=== PATIENT | female | born 2000 | race Caucasian/White ===

== ENCOUNTER 2018-02-17 19:16 | Emergency (ER) | payer OTHER ==
[2018-02-17] MEDS: diphenhydrAMINE 25 MG CAP PO (19:47)
== END 2018-02-17 19:59 | disposition home or self-care (01) ==
LOC: M ED 19:16
DX: O99.712 Diseases of the skin and subcutaneous tissue complicating pregnancy, second trimester (principal); L25.9 Unspecified contact dermatitis, unspecified cause; Z3A.14 14 weeks gestation of pregnancy; O99.332 Smoking (tobacco) complicating pregnancy, second trimester; F17.210 Nicotine dependence, cigarettes, uncomplicated
CPT/HCPCS: 99282

== ENCOUNTER → 2018-04-20 | Outpatient (CLI) | payer OTHER | LOC: M RAD 06:34 | DX: Z34.02 Encounter for supervision of normal first pregnancy, second trimester (principal) | CPT/HCPCS: 76811 ==

== ENCOUNTER 2018-05-03 19:29 | Outpatient (CLI) | payer OTHER | END 2018-05-03 20:53 | disposition home or self-care (01) | LOC: M LDO 19:29 | DX: O26.892 Other specified pregnancy related conditions, second trimester (principal); R10.30 Lower abdominal pain, unspecified; Z3A.22 22 weeks gestation of pregnancy | CPT/HCPCS: G0463 ==

== ENCOUNTER → 2018-05-17 | Outpatient (CLI) | payer OTHER | LOC: M RAD 10:41 | DX: Z34.02 Encounter for supervision of normal first pregnancy, second trimester (principal); Z3A.26 26 weeks gestation of pregnancy | CPT/HCPCS: 76816 ==

== ENCOUNTER 2018-07-10 17:17 | Emergency (ER) | payer OTHER ==
[~2018-07-10] VITALS: Ht 160 cm; Wt 86.2 kg
[~2018-07-10 17:17] MED LIST: BENA25CA4 PO
[2018-07-10] MEDS ORDERED: IRON27TA2 PO (17:23)
[2018-07-10] MEDS ORDERED: ACETAMINOPHEN 325 MG TAB PO ONE (18:00)
[2018-07-10] MEDS ORDERED: NS 1,000 ML IV ONE (18:00)
[2018-07-10] MEDS ORDERED: METOCLOPRAMIDE INJ 10MG/2ML VIAL (J2765) IV ONE (18:00)
[2018-07-10 18:22] LABS: BASO % 0.1 % (0.0-1.0); EOS # 0.1 10^3/uL (0.0-0.50); EOS % 0.6 % (0.0-3.0); HEMATOCRIT 32.8 % (36.0-47.0); HEMOGLOBIN 10.7 g/dl (12.0-15.5); LYMPH # 2.7 10^3/uL (1.5-6.5); LYMPH % 30.1 % (24.0-44.0); MEAN CORPUSCULAR HEMOGLOBIN 31.1 pg (27.0-33.0); MEAN CORPUSCULAR HGB CONC 32.6 g/dl (32.0-36.5); MEAN CORPUSCULAR VOLUME 95.3 fl (80.0-96.0); MONO # 0.5 10^3/uL (0.0-0.8); MONO % 5.7 % (0.0-5.0); NEUTROPHILS # 5.6 10^3/uL (1.8-7.7); NEUTROPHILS % 62.4 % (36.0-66.0); PLATELET COUNT, AUTOMATED 211 10^3/uL (150-450); RED BLOOD COUNT 3.44 10^6/uL (4.00-5.40); WHITE BLOOD COUNT 8.9 10^3/uL (4.0-10.0)
[2018-07-10 18:44] LABS: ALBUMIN 2.8 GM/DL (3.2-5.2); ALT/SGPT 15 U/L (12-78); BILIRUBIN,TOTAL 0.2 MG/DL (0.2-1.0); BLOOD UREA NITROGEN 5 MG/DL (7-18); CALCIUM LEVEL 8.3 MG/DL (8.5-10.1); CARBON DIOXIDE LEVEL 22 MEQ/L (21-32); CHLORIDE LEVEL 108 MEQ/L (98-107); CREATININE FOR GFR 0.46 MG/DL (0.55-1.30); GLUCOSE, FASTING 75 MG/DL (70-100); SODIUM LEVEL 140 MEQ/L (136-145); TOTAL PROTEIN 6.7 GM/DL (6.4-8.2)
[2018-07-10 18:57] LABS: APPEARANCE, URINE HAZY (CLEAR); BACTERIA, URINE AUTO 1+ (NEGATIVE); BILIRUBIN, URINE AUTO NEGATIVE (NEGATIVE); BLOOD, URINE BLOOD NEGATIVE (NEGATIVE); COLOR, URINE YELLOW (YELLOW); GLUCOSE, URINE (UA) AUTO NEGATIVE (NEGATIVE); KETONE, URINE AUTO NEGATIVE (NEGATIVE); LEUKOCYTE ESTERASE, URINE AUTO NEGATIVE (NEGATIVE); MUCUS, URINE SMALL (NEGATIVE); NITRITE, URINE AUTO NEGATIVE (NEGATIVE); PROTEIN, URINE AUTO NEGATIVE (NEGATIVE); RBC, URINE AUTO 1 /HPF (0-3); SPECIFIC GRAVITY URINE AUTO 1.012 (1.002-1.035); SQUAMOUS EPITHELIAL CELL UR AU 6 /HPF (0-6); UROBILINOGEN, URINE AUTO 0.2 mg/dL (0.0-2.0); WBC, URINE AUTO 4 /HPF (0-3)
[2018-07-10] MEDS ORDERED: REGL10TA6 PO (19:10)
[2018-07-10 19:32] VITALS: BP 111/64
== END 2018-07-10 19:36 | disposition home or self-care (01) ==
LOC: M ED 17:17
DX: O99.353 Diseases of the nervous system complicating pregnancy, third trimester (principal); G43.909 Migraine, unspecified, not intractable, without status migrainosus; Z3A.33 33 weeks gestation of pregnancy
CPT/HCPCS: 80053; 81001; 85025; 96374; 99284; J2765

== ENCOUNTER 2018-07-26 10:11 | Emergency (ER) | payer OTHER ==
[~2018-07-26] VITALS: Ht 160 cm; Wt 88.2 kg
[~2018-07-26 10:11] MED LIST changes: +IRON27TA2 PO; +REGL10TA6 PO
[2018-07-26 10:12] VITALS: BP 130/80
[2018-07-26] MEDS ORDERED: FLON1SPR NARES (10:31)
== END 2018-07-26 10:41 | disposition home or self-care (01) ==
LOC: M ED 10:11
DX: J06.9 Acute upper respiratory infection, unspecified (principal); H65.03 Acute serous otitis media, bilateral

== ENCOUNTER 2018-08-04 09:51 | Outpatient (CLI) | payer OTHER ==
[~2018-08-04] VITALS: Ht 160 cm; Wt 89.4 kg
[~2018-08-04 09:51] MED LIST changes: +FLON1SPR NARES
[2018-08-04] MEDS ORDERED: FERR325T3 PO (10:07)
[2018-08-04] MEDS ORDERED: PRENTAB9 PO (10:07)
[2018-08-04 10:09] VITALS: BP 119/63
[2018-08-04 10:44] LABS: HEMATOCRIT 31.4 % (36.0-47.0); HEMOGLOBIN 10.6 g/dl (12.0-15.5); MEAN CORPUSCULAR HEMOGLOBIN 31.5 pg (27.0-33.0); MEAN CORPUSCULAR HGB CONC 33.8 g/dl (32.0-36.5); MEAN CORPUSCULAR VOLUME 93.5 fl (80.0-96.0); PLATELET COUNT, AUTOMATED 202 10^3/uL (150-450); RED BLOOD COUNT 3.36 10^6/uL (4.00-5.40); WHITE BLOOD COUNT 8.8 10^3/uL (4.0-10.0)
[2018-08-04 10:47] LABS: PARTIAL THROMBOPLASTIN TIME 27.4 SECONDS (25.4-37.6); PROTHROMBIN TIME 13.3 SECONDS (12.1-14.4)
[2018-08-04 11:23] LABS: COLLAGEN EPINEPHRINE 105 SECONDS (74-162)
--- NOTE | 2018-08-04 12:19 | REP ---
OB ULTRASOUND: Real-time sonographic evaluation of gravid uterus performed. There is a single living intrauterine gestation. Estimated gestational age is 37 weeks 1 day based on initial ultrasound, EDC 08/24/2018. heart rate 135 beats per minute. Amniotic fluid within normal limits, RANDI 13.2 within normal range of 7.8 to 24.9. S/D ratio 3.23 is slightly above normal range of 2.0 to 3.0. RI 0.69, within normal range of 0.59 to 0.75. position vertex. Placenta anterior with no previa or abruption. Electronically Signed by Calvin Beltran MD 08/04/2018 04:01 P
--- NOTE | 2018-08-04 14:20 | NUR ---
[facility] L&D Triage Note: S: This is a 17 y/o G1 at 35+5 weeks who presented s/p falling down a couple of stairs and landing on her buttocks/low back earlier this morning. Following her time during evaluation on L&D she continues to deny VB/LOF/CTX and endorses excellent FM. Her has been c/b anemia, smoking but quit, and she is giving this baby up for adoption. O: VSS/AF GEN A&Ox3 PUL: CTAB CV: RRR ABD: gravid, NNTP; relaxed uterine resting tone [place]: no palpable ctx EXT: + DTR's, NEG clonus FHR: CAT 1, no ctx TAUS: SIUP; FHR 135bpm. RANDI 13.2. Cephalic vtx, anterior placenta no previa or abruption LABS: H/H-10.6; 31.4; Fibrinogen 533, PLT 202 A/P: 17 y/o G1 35+5 s/p fall. After 4 hours of continuous FM w/ CAT I FHR. She is being dc'd to home with reassuring status and no evidence of abruption. Extensive review of warning signs, return precautions, and reinforced importance of daily [facility]MC assessments. She has CULLEN this week and has been instructed to keep appt. Pt reports understanding of all instructions w/o questions/concerns.
== END 2018-08-04 14:15 | disposition home or self-care (01) ==
LOC: M LDO 09:51
PROVIDERS: ATTEND Obstetrics & Gynecology
DX: Z04.3 Encounter for examination and observation following other accident (principal); O26.893 Other specified pregnancy related conditions, third trimester; W10.8XXA Fall (on) (from) other stairs and steps, initial encounter; Y92.89 Other specified places as the place of occurrence of the external cause; Y93.89 Activity, other specified; Y99.8 Other external cause status; Z3A.35 35 weeks gestation of pregnancy
CPT/HCPCS: 36415; 59025; 76815; 76820; 85027; 85384; 85576; 85610; 85730; G0378; G0463

== ENCOUNTER 2018-09-08 01:38 | Inpatient (IN) | payer OTHER ==
[~2018-09-08] VITALS: Ht 160 cm; Wt 93.7 kg
[2018-09-08] VITALS (61 sets, daily range): BP systolic 90–161; BP diastolic 51–110
[~2018-09-08 01:38] MED LIST changes: +FERR325T3 PO; +PRENTAB9 PO
[2018-09-08] MEDS: LR 1,000 ML IV SCH ×3 (03:06→14:33)
[2018-09-08] MEDS ORDERED: LACTATED RINGER'S 1000 ML IV STA (03:06)
--- NOTE | 2018-09-08 03:26 | HPEPDOC ---
Obstetrical History & Physical General Date of Admission 09/08/2018 History of Present Illness Emilia is a 17yo with SIUP at 40w5d by lmp c/w early u/s presenting to L&D for painful ctx. No LOF, no vaginal bleeding, feels good movement. On RN check, patient /-2. On re-check after 1 hour, SCE /-2. Chief Complaint: Contractions, term Care Care: Good Care Dating Final EDC: Sep 03, 2018 Final EDC by: LMP, 1st trimester (US) Antepartum Course Diagnos(e)s Overweight with starting BMI 26.6 and Excessive weight gain (53 pounds), smoked 1 cig/day but quit with , mild bilateral renal hydronephrosis (will make pediatric team aware), anemia (H/H at 28wk 10.6/31.2), patient plans to adopt the baby out Height (inches): 63 Pre- weight (lbs.): 150 Admission Weight (lbs.): 203 Change in Weight (lbs.): 53 Past Medical History Past Obstetrical History : Past Obstetrical History: Primgravida Past Medical History Medical History Overweight (starting BMI 26.6) Surgical History: [place] teeth Family History Significant Family History: No pertinent family hx Social History Marital Status: Single Psychosocial History: No pertinent psych hx * Smoker: former Smoker Alcohol: Denies Drugs: denies Imunizations Tdap status: current Influenza Status: current Allergies Coded Allergies: No Known Allergies (Verified , 12/24/02) Medications Scheduled Ferrous Sulfate (Ferrous Sulfate) 325 Mg Tab, 325 MG PO TID Multivitamins/ ( 27-0.8 mg) 1 Tab Tab, 1 TAB PO DAILY Physical Examination Physical Examination GENERAL: Alert and oriented times three. ABDOMEN: Gravid and non-tender to touch. FETUS: Is vertex (VTX) by sterile vaginal examination (SVE) EXTREMITIES: trace pedal edema BLE Vital Signs/I&O Vital Signs Date Time Temp Pulse Resp B/P (MAP) Pulse Ox O2 Delivery O2 Flow Rate FiO2 09/08/18 02:38 99.0 104 20 139/76 (97) Pertinent Laboratoy Data Blood Type: O+ RBC Antibody Screen: Negative HIV: Negative Hepatitis B: Negative Hepatitis C: Unknown Rapid Plasma Reagin: Nonreactive Rubella: Immune Chlamydia/Gonorrhea: Negative Group B Streptococcus: Negative Glucose Tolerance Test: 81 Anatomy Ultrasound Ultrasound Date: May 17, 2018 Placenta Location: Anterior Normal Anatomy: No (bilateral renal hydronephrosis) Placenta Previa: No Other Ultrasounds PNC repeat ultrasound 07/04/18: UPJ dilation, right kidney 4.2mm, left kidney 6.6 mm Steroid Therapy Steroid Therapy: No Vaginal Examination Dilation: 3 cm Effacement: 90% Station: -2 Cervical Consistency: Soft Cervical Position: Middle Presentation: Cephalic presentation Assessment Heart Rate (FHR): 140 Variability: Moderate Accelerations: Positive Decelerations: None Tocometer Contractions: Yes Frequency: regular, every 2-5 min. Duration: greater than 60 seconds Strength: palpated as moderate Assessment/Plan Assessment Emilia is a 17yo with SIUP at 40w5d by lmp c/w early u/s admitted to L&D for latent labor with cervical change, 50/-2 to 90/-2 over an hour in triage. Cat I FHRT with ctx q3min. Vitals wnl, afebrile, benign exam. Cephalic by SCE. GBS negative. course significant for: Overweight with starting BMI 26.6 and Excessive weight gain (53 pounds), smoked 1 cig/day but quit with , mild bilateral renal hydronephrosis (will make pediatric team aware), anemia (H/H at 28wk 10.6/31.2), patient plans to adopt the baby out Plan Admit and orient. [place] and consent. Discussed use of pitocin if labor stalls, patient is amenable. Diet: clear liquids Group B Streptococcus (GBS) negative Labs and intravenous (IV) per unit protocol. Lactated Ringers (LR): Bolus 1000 mL, then at 125 mL/hr. Anticipate normal spontaneous delivery () Candidate for epidural as desired Will notify pediatric team of renal hydronephrosis MD Alexis Watkins Katrina D MD Sep 08, 2018 03:26
[2018-09-08 04:08] LABS: HEMATOCRIT 34.4 % (36.0-47.0); HEMOGLOBIN 11.1 g/dl (12.0-15.5); MEAN CORPUSCULAR HEMOGLOBIN 30.2 pg (27.0-33.0); MEAN CORPUSCULAR HGB CONC 32.3 g/dl (32.0-36.5); MEAN CORPUSCULAR VOLUME 93.7 fl (80.0-96.0); PLATELET COUNT, AUTOMATED 207 10^3/uL (150-450); RED BLOOD COUNT 3.67 10^6/uL (4.00-5.40); WHITE BLOOD COUNT 11.8 10^3/uL (4.0-10.0)
[2018-09-08] MEDS ORDERED: FENTANYL 2MCG/ML ROPIVACAINE 0.2% IN 0.9% NACL 100ML IVBAG As Ordered ONE (04:58)
[2018-09-08] MEDS ORDERED: diphenhydrAMINE INJ 50MG/ML VIAL (J1200) IV PRN (05:05)
[2018-09-08] MEDS ORDERED: EPIDURAL COMMENT XX SCH (05:05)
[2018-09-08] MEDS ORDERED: EPIDURAL/PCA KEYS XX PRN (05:05)
[2018-09-08] MEDS ORDERED: ePHEDrine SULFATE 25 MG/5 ML(5MG/ML) SYRINGE IV PRN (05:05)
[2018-09-08] MEDS ORDERED: ONDANSETRON 4MG/2ML VIAL (J2405) IV PRN ×2 (05:05→20:45)
[2018-09-08] MEDS ORDERED: REFRIGERATOR IV KEYS XX PRN (05:05)
[2018-09-08] MEDS: FENTANYL/ROPIVACAINE/NACL BAG 100 ML EPIDURAL SCH ×2 (05:05→13:35)
[2018-09-08] MEDS ORDERED: NALOXONE INJ 0.4 MG/1 ML VIAL (J2310) IV PRN (05:05)
[2018-09-08] MEDS ORDERED: OXYTOCIN DRIP 30 UNITS in APPROPRIATE DILUENT 1 EA IV SCH ×2 (07:45→20:45)
--- NOTE | 2018-09-08 08:04 | IPNPDOC ---
Text Note Date of Service The patient was seen on 09/08/18. NOTE Intrapartum Note Pt doing well, received epidural and comfortable. Vitals wnl, afebrile RN checked SCE at 0600 and reported unchanged, still /-2. One prolonged FHR decel after epidural, but otherwise Cat I FHRT with +accels/mod raymundo/no other decels Gramling: ctx q2min Will plan to begin pitocin and titrate per protocol, continue to closely monitor SBAR given to Dr. Grewal at [address] Dayami Espinoza MD VS,Nery, I+O VS, Nery, I+O Laboratory Tests 09/08/18 03:57 Red Blood Count 3.67 L, Mean Corpuscular Volume 93.7, Mean Corpuscular Hemoglobin 30.2, Mean Corpuscular Hemoglobin Concent 32.3, Red Cell Distribution Width 14.3 Vital Signs Date Time Temp Pulse Resp B/P (MAP) Pulse Ox O2 Delivery O2 Flow Rate FiO2 09/08/18 06:31 98.5 100 18 127/89 (102) Dayami Espinoza MD Sep 08, 2018 08:04
--- NOTE | 2018-09-08 11:41 | IPNPDOC ---
Text Note Date of Service The patient was seen on 09/08/18. NOTE SBAR received from Dr. Espinoza regarding Emilia. She's a 17 yo at 40+5 weeks who presented in early latent labor. has been uncomplicated. I presented to the room for assessment. She was started on pitocin for labor augmentation. She has had worsening pain and received an epidural. SROM, clear fluid, occurred at ~1115. Cervix: 8/90/-1 per RN exam. FHR: Cat II, moderate variability, +accels, +variable decels after SROM. IV fluid bolus has been given and positional changes initiated. Patient progressing well. Will continue to monitor closely. DO Uri VS,Nery, I+O VS, Nery, I+O Laboratory Tests 09/08/18 03:57 Red Blood Count 3.67 L, Mean Corpuscular Volume 93.7, Mean Corpuscular Hemoglobin 30.2, Mean Corpuscular Hemoglobin Concent 32.3, Red Cell Distribution Width 14.3 Vital Signs Date Time Temp Pulse Resp B/P (MAP) Pulse Ox O2 Delivery O2 Flow Rate FiO2 09/08/18 08:55 101 18 108/59 (75) 09/08/18 07:26 98.5 ORLIN MENEZES DO Sep 08, 2018 11:41
--- NOTE | 2018-09-08 14:21 | IPNPDOC ---
Text Note Date of Service The patient was seen on 09/08/18. NOTE Presented to room for assessment of progress. Her epidural tubing disconnected but has been hooked up again and pain relief is back. She feels lower pelvic pressure. Cervix: 9/C/0. FHR remains Cat I. Continue with pitocin. DO Uri VS,Nery, I+O VS, Nery, I+O Laboratory Tests 09/08/18 03:57 Red Blood Count 3.67 L, Mean Corpuscular Volume 93.7, Mean Corpuscular Hemoglobin 30.2, Mean Corpuscular Hemoglobin Concent 32.3, Red Cell Distribution Width 14.3 Vital Signs Date Time Temp Pulse Resp B/P (MAP) Pulse Ox O2 Delivery O2 Flow Rate FiO2 09/08/18 08:55 101 18 108/59 (75) 09/08/18 07:26 98.5 ORLIN MENEZES DO Sep 08, 2018 14:21
--- NOTE | 2018-09-08 17:19 | IPNPDOC ---
Text Note Date of Service The patient was seen on 09/08/18. NOTE Patient C/C/+1 - +2. FHR Cat I. Will begin pushing. DO Uri VS,Nery, I+O VS, Nery, I+O Laboratory Tests 09/08/18 03:57 Red Blood Count 3.67 L, Mean Corpuscular Volume 93.7, Mean Corpuscular Hemoglobin 30.2, Mean Corpuscular Hemoglobin Concent 32.3, Red Cell Distribution Width 14.3 Vital Signs Date Time Temp Pulse Resp B/P (MAP) Pulse Ox O2 Delivery O2 Flow Rate FiO2 09/08/18 08:55 101 18 108/59 (75) 09/08/18 07:26 98.5 ORLIN MENEZES DO Sep 08, 2018 17:19
--- NOTE | 2018-09-08 19:09 | IPNPDOC ---
Text Note Date of Service The patient was seen on 09/08/18. NOTE Emilia has been pushing for ~2 hours. Caput now +2 to +3 station with pushes. She has progressed well past +1 station. She is becoming fatigued. FHR remains reassuring. head appears to be OP by exam, though Emilia has great effort. Will continue with pushing. If no further progress after 30-60 minutes would consider operative vaginal delivery for maternal exhaustion or delivery. DO Uri VS,Nery, I+O VS, Nery, I+O Laboratory Tests 09/08/18 03:57 Red Blood Count 3.67 L, Mean Corpuscular Volume 93.7, Mean Corpuscular Hemoglobin 30.2, Mean Corpuscular Hemoglobin Concent 32.3, Red Cell Distribution Width 14.3 Vital Signs Date Time Temp Pulse Resp B/P (MAP) Pulse Ox O2 Delivery O2 Flow Rate FiO2 09/08/18 08:55 101 18 108/59 (75) 09/08/18 07:26 98.5 ORLIN MENEZES DO Sep 08, 2018 19:09
[2018-09-08 20:19] LABS: CORD GAS ABE V -3.9; CORD GAS HCO3 V 22.3 MEQ/L; CORD GAS O2 SAT V 57.1 %; CORD GAS PCO2 V 44.3 mmHg; CORD GAS PH V 7.319 UNITS; CORD GAS PO2 V 26.1 mmHg; CORD GAS SBC V 20.2 MEQ/L; CORD GAS TCO2 V 23.6 MEQ/L
[2018-09-08 20:22] LABS: CORD GAS PCO2 A 40.8 mmHg; CORD GAS PH A 7.282 UNITS; CORD GAS PO2 A 35.9 mmHg; CORD GAS TCO2 A 20.1 MEQ/L
[2018-09-08 20:23] LABS: CORD GAS ABE A -7.4; CORD GAS HCO3 A 18.8 MEQ/L
[2018-09-08 20:26] LABS: CORD GAS O2 SAT A 74.9 %
[2018-09-08] MEDS ORDERED: IBUPROFEN 800 MG TAB As Ordered ONE (20:39)
[2018-09-08] MEDS ORDERED: DIBUCAINE 1% OINTMENT 30GM TOP PRN (20:45)
[2018-09-08] MEDS ORDERED: DOCUSATE SODIUM 100 MG CAP PO PRN (20:45)
[2018-09-08] MEDS ORDERED: MEASLES,MUMPS,RUBELLA VACCINE INJ (MMR-II) (90707) SC SCH (20:45)
[2018-09-08] MEDS ORDERED: RHOGAM 300 MCG (1500 IU) INJ (J2790) IM SCH (20:45)
[2018-09-08] MEDS: IBUPROFEN 800 MG TAB PO PRN (21:00)
--- NOTE | 2018-09-08 21:09 | DNPDOC ---
[facility] Delivery Note Delivery Note DATE OF DELIVERY: 08Sep2018 at ~2000 PREDELIVERY DIAGNOSIS: 40+5 weeks gestation and labor. POST DELIVERY DIAGNOSIS: Delivered. PROCEDURE: Vacuum assisted vaginal delivery CRISIS THERAPIST: Dr. Grewal ANESTHESIA: Epidural ESTIMATED BLOOD LOSS: 300 mL. FINDINGS: 9 pound 3 ounce male infant, Score 9/9 DELIVERY SUMMARY: Pushed with Emilia for approximately 1.5 hours. She was moving the head down to +3 station and had excellent effort. However she became exhausted with her efforts (total pushing time ~3 hours) and requested assistance. The head was felt to be OA. My EFW was ~9 pounds, and I felt that her pelvis was adequate for delivery. I offered a trial of vacuum assisted vaginal delivery vs section. We discussed all risks of vacuum deliveries to include, but not limited to, scalp laceration, cephalohematoma, retinal hemorrhage, subgaleal hemorrhage with subsequent significant morbidity and potential for mortality, and failure to effect delivery which would require a higher risk section. We also discussed all risks of section. She verbalized understanding of these risks and opted to proceed with vacuum assisted vaginal delivery with indication of maternal exhaustion. FHR tracing remained Cat II. A Kiwi vacuum device was opened on the field, tested, and found to be functional. The patient's bladder had previously been emptied as her [place] catheter was recently removed. The head was felt to be in OA position. The kiwi vacuum was then placed on the scalp at the flexion point per the whitewater rafting guide's guidelines. Care was taken to ensure that no maternal tissue was caught within the device. During contractions the vacuum was activated up to the green zone (400-600mmHg) and gentle traction was applied to effect delivery. There were two pop offs, but after 4 sets of pushes with the device the head delivered OA. The kiwi vacuum pressure was released and the device was discarded off the field. The left anterior shoulder delivered with gentle guidance followed easily by the remainder of the body. The infant was dried and stimulated on the field. The infant cried vigorously after delivery and was placed on the maternal abdomen. The three vessel cord was then clamped and cut by the FOB. 3rd stage was completed with gentle traction on the cord it was productive of an intact placenta. The uterine fundus was firmed with massage and pitocin and was administered IV bolus. Inspection of the vagina, perineum, and cervix revealed bilateral sidewall lacerations and a midline 2nd degree perineal laceration. These lacerations were repaired with 3-0 vicryl suture in the usual fashion. There was excellent cosmesis and hemostasis. The fundus was palpated again and was firm. All sponge, instrument, and needle counts were correct X2. Mother stable when I left the room. DO RIRI Calderon CHRISTOPHER J. DO Sep 08, 2018 21:09
[2018-09-09] MEDS: ACETAMINOPHEN 500 MG TAB PO PRN ×2 (04:53→23:45)
[2018-09-09 06:00] VITALS: BP 117/61
[2018-09-09] MEDS ORDERED: ceFAZolin SOD 1 GM in D5W MINI-BAG PLUS 50 ML IV ONE (07:30)
[2018-09-09] MEDS: PRENATAL VITAMINS CHEWABLE TABLET PO SCH (08:12)
--- NOTE | 2018-09-09 08:14 | IPNPDOC ---
Progress Note Date of Service: Sep 09, 2018 Progress Note Emilia is a 17 yo G1 now P1 who underwent an uncomplicated VAVD on 08Sep2018 after being admitted for early labor. She reports feeling well this morning. She is ambulating, voiding, and tolerating a regular diet. She has minimal lochia. Her bottom is sore, but not significantly so. Vitals - VSS, afebrile, normotensive, non tachycardic General - AAOX3, sitting up in bed, NAD Abdomen - Fundus firm at U-2. No fundal tenderness. Extremities - No edema Emilia is doing well this AM and is making an appropriate recovery. Continue to encourage ambulation today. Likely discharge home tomorrow AM. The baby is being given up for adoption. Orlin Grewal DO VS, I&O, 24H, Fishbone Vital Signs/I&O Vital Signs Date Time Temp Pulse Resp B/P (MAP) Pulse Ox O2 Delivery O2 Flow Rate FiO2 09/09/18 06:00 96.3 92 17 117/61 (79) I&O- Last 24 Hours up to 6 AM 09/09/18 06:00 Intake Total 4591 ml Output Total 2200 ml Balance 2391 ml Laboratory Data 24H LABS Laboratory Tests 2 09/08/18 20:10: Cord Arterial Blood pH 7.282, Cord Arterial Blood PCO2 40.8, Cord Arterial Blood PO2 35.9, Cord Arterial Blood HCO3 18.8, Cord Arterial Blood Total CO2 20.1, Cord Arterial Blood Base Excess -7.4, Cord Arterial Base Excess (Standard 18.0, Cord Arterial Bld Oxygen Saturation 74.9, Cord Venous Blood pH 7.319, Cord Venous Blood PCO2 44.3, Cord Venous Blood PO2 26.1, Cord Venous Blood HCO3 22.3, Cord Venous Blood Total CO2 23.6, Cord Venous Base Excess (Actual) -3.9, Cord Venous Base Excess (Standard) 20.2, Cord Venous Blood Oxygen Saturation 57.1 09/09/18 00:06: Bedside Glucose (Misc Panel) 42L ORLIN GREWAL DO Sep 09, 2018 08:14
[2018-09-09] MEDS: IBUPROFEN 800 MG TAB PO PRN (14:59)
[2018-09-09 18:08] VITALS: BP 124/82
[2018-09-10 06:00] VITALS: BP 127/83
[2018-09-10] MEDS: ACETAMINOPHEN 500 MG TAB PO PRN (06:32)
--- NOTE | 2018-09-10 06:43 | DS.PDOC ---
Discharge Summary General Date of Admission Sep 08, 2018 at 03:10 Date of Discharge [id number] Discharge Summary PROCEDURES PERFORMED DURING STAY: VAVD ADMITTING DIAGNOSES: 1. Active labor DISCHARGE DIAGNOSES: 1. s/p VAVD COMPLICATIONS/CHIEF COMPLAINT: Labor Check. HISTORY OF PRESENT ILLNESS: complicated by starting BMI-26.6; smoker- quit in early ; anemia; fetus-bilat renal heypronephrosis; babe is being adopted out HOSPITAL COURSE: presented in active labor, augmented with pitocin, VAVD DISCHARGE MEDICATIONS: tylenol, motrin, dibucaine ALLERGIES: See below PHYSICAL EXAMINATION ON DISCHARGE: VITAL SIGNS: Please see below. GENERAL: A&O x 3 CARDIOVASCULAR EXAMINATION: RRR, no m/r/g RESPIRATORY EXAMINATION: CTA ABDOMINAL EXAMINATION: no TTP, fundus firm @ U-3, Small amount of bright red bleeding required < 1 pad overnight, voiding and stooling without difficulty EXTREMITIES: ambulating without difficulty BREAST: filling PSYCHIATRIC EXAMINATION: Denies SI/HI LABORATORY DATA: Please see below. PROGNOSIS: good ACTIVITY: As tolerated; slowly start walking in the next several weeks DIET: REGULAR DISCHARGE PLAN: Discharge to home today DISPOSITION: today DISCHARGE INSTRUCTIONS: 1. Schedule PP appt @ OB Clinic in 6 wks 2. Desires OCPs for control 3. Pelvic rest for 6 wks 4. Use backup form of control if having sex prior to starting OCPs 5. Travel precautions 6. Danger and warning s/s to report to ED including f/c/n/v/d, foul smelling discharge, increasing pelvic, breast or perineal pain ITEMS TO FOLLOWUP ON ON OUTPATIENT: 1. PP appt 2. pelvic rest DISCHARGE CONDITION: stable TIME SPENT ON DISCHARGE: Greater than 20 minutes. Vital Signs/I&Os Vital Signs Date Time Temp Pulse Resp B/P (MAP) Pulse Ox O2 Delivery O2 Flow Rate FiO2 09/10/18 06:00 97.9 79 18 127/83 (98) 09/09/18 18:08 99 Discharge Medications Scheduled Ferrous Sulfate (Ferrous Sulfate) 325 Mg Tab, 325 MG PO TID, (Reported) Multivitamins/ ( 27-0.8 mg) 1 Tab Tab, 1 TAB PO DAILY, (Reported) Allergies Coded Allergies: No Known Allergies (Verified , 12/24/02) JAKE SEGURA CNM Sep 10, 2018 06:43
[2018-09-10] MEDS: PRENATAL VITAMINS CHEWABLE TABLET PO SCH (10:17)
[2018-09-10 18:39] VITALS: BP 126/87
[2018-09-10] MEDS: IBUPROFEN 800 MG TAB PO PRN (20:58)
[2018-09-11 05:57] VITALS: BP 117/64
--- NOTE | 2018-09-11 07:28 | IPNPDOC ---
Text Note Date of Service The patient was seen on 09/11/18. NOTE VAVD PPD3 States feeling well, pain controlled with prescribed meds. Baby bonding and feeding well. No heavy VB. Lochia slowing. Ambulatory. Tolerating PO without issues. Voiding spont. No CP/LP/SOB. VSSAF NAD A&O LE no C/C/E Ut at U-2, firm a/p: Doing well. Cont routine care. D/C today. Was discharged yesterday,but legal team did not show and was kept one more day until papers for adoption could be signed today. Sessions Nery [place], I+O VSNery, I+O Vital Signs Date Time Temp Pulse Resp B/P (MAP) Pulse Ox O2 Delivery O2 Flow Rate FiO2 09/11/18 05:57 98.2 81 18 117/64 (81) 09/09/18 18:08 99 SESSIONSGIULIA MD Sep 11, 2018 07:28
[2018-09-11] MEDS ORDERED: COLA100C5 PO (07:50)
[2018-09-11] MEDS ORDERED: IBUP-1114 PO (07:50)
[2018-09-11] MEDS ORDERED: MAPA500T2 PO (07:50)
[2018-09-11] MEDS ORDERED: NUPE1OIN2 TOP (07:51)
[2018-09-11] MEDS: PRENATAL VITAMINS CHEWABLE TABLET PO SCH (08:16)
[2018-09-11] MEDS: ACETAMINOPHEN 500 MG TAB PO PRN (09:56)
== END 2018-09-11 19:00 | disposition home or self-care (01) | DRG 807 ==
LOC: M LDO 01:38 → M LDI 03:10 → M OBS 23:03
PROVIDERS: ADMIT Obstetrics & Gynecology; ATTEND Obstetrics & Gynecology
PROC: 10D07Z6 Extraction of Products of Conception, Vacuum, Via Natural or Artificial Opening (ICD-10-PCS; principal; 2018-09-08)
PROC: 0KQM0ZZ Repair Perineum Muscle, Open Approach (ICD-10-PCS; 2018-09-08)
DX: O48.0 Post-term pregnancy (principal); Z37.0 Single live birth; Z3A.40 40 weeks gestation of pregnancy; O26.03 Excessive weight gain in pregnancy, third trimester; O70.1 Second degree perineal laceration during delivery